=== PATIENT | female | born 1980 | race African-American/Black ===

== ENCOUNTER → 2016-06-07 | Outpatient (CLI) | payer OTHER ==
--- NOTE | ~2016-06-07 | CR63 ---
[facility] A Service of [facility] & [facility] / [facility] RADIOLOGY TEXT RESULTS PATIENT: CARTER CROFT LOCATION: [facility] : [birth year] UNIT #: [id number] AGE: [address]: Lara Velazquez MD SEX: F ORDER DR: [id number] [facility] [address] [place], [place] [address] [id number] O MR#: [id number] Acc #: [id number] NAME: CARTER CROFT : 1980 SEX: F STUDY DATE/TIME: 06/07/2016 11:53 UNIT: [facility] ROOM: STUDY DESCRIPTION: CR Chest 2 View Attending Physician: Lara Velazquez M.D. Ordering Physician: Lara Velazquez M.D. Primary Care Physician: Lara Velazquez M.D. MEDICAL IMAGING REPORT This report is preliminary unless electronic signature is present EXAM Two view chest 06/07/2016. HISTORY A 36-year-old woman, unproductive cough times 6 months. COMPARISON STUDIES 07/25/2007 FINDINGS Two-view chest demonstrates normal cardiac size and configuration. Hilar structures and mediastinal contours are preserved. Bilateral lungs are clear and fully expanded. Costophrenic angles are preserved. IMPRESSION Negative chest. Dictated by... Brigido Nova M.D. THIS IS AN ELECTRONICALLY VERIFIED REPORT Brigido Nova M.D. at 06/08/2016 8:12 AM ANTIONETTE/salazar TD: 06/07/2016 15:32 JOB #: [id number] MEDICAL IMAGING REPORT Page 1 of 1 COPY
== END | disposition home or self-care (01) ==
LOC: CRAD 11:27
DX: R05 Cough (principal)
CPT/HCPCS: 71020

== ENCOUNTER → 2016-09-20 | Outpatient (CLI) | payer OTHER ==
--- NOTE | ~2016-09-20 | US98 ---
[facility] A Service of [facility] & [facility] RADIOLOGY TEXT RESULTS PATIENT: CARTER CROFT LOCATION: [facility] : 82 UNIT #: [id number] AGE: [address]: Lara Velazquez MD SEX: F ORDER DR: [id number] [facility] [address] [place], [place] [address] [id number] O MR#: [id number] Acc #: [id number] NAME: CARTER CROFT : 1980 SEX: F STUDY DATE/TIME: 09/20/2016 9:48 UNIT: [facility] ROOM: STUDY DESCRIPTION: US Pelvic Non-OB Complete Attending Physician: Lara Velazquez M.D. Referring Physician: Lara Velazquez M.D. Ordering Physician: Lara Velazquez M.D. Primary Care Physician: Lara Velazquez M.D. MEDICAL IMAGING REPORT This report is preliminary unless electronic signature is present EXAM Transabdominal and transvaginal pelvic ultrasound 09/20/2016 HISTORY Enlarged uterus on physical examination 09/15/2016. Uterine fibroids. TECHNIQUE Transabdominal and transvaginal pelvic ultrasound was performed. Endovaginal ultrasound was performed for attempted better visualization of the adnexal structures. FINDINGS The bladder is normal in appearance. Uterus measures 13.9 cm craniocaudal x 10.3 cm AP x 8.4 cm transverse. The uterus is diffusely heterogeneous in echotexture characteristic of leiomyomatous infiltration. A discrete 8.8 cm x 8.7 cm fibroid is seen within the uterine body. The endometrial stripe was poorly visualized. The right ovary measured 2.8 cm x 4.3 cm x 2.1 cm, while the left ovary measured 1.1 cm x 2.4 cm x 1.6 cm. There is no adnexal mass and there is no free fluid in the pelvis. IMPRESSION 1. Diffusely enlarged leiomyomatous uterus. 2. The ovaries are normal bilaterally. No adnexal mass was seen and there is no free fluid in the pelvis. Dictated by... Regulo R. Pierce, M.D. THIS IS AN ELECTRONICALLY VERIFIED REPORT Regulo Pelayo M.D. at 09/21/2016 2:10 PM KRT/pcl [facility] A Service of [facility] RADIOLOGY TEXT RESULTS PATIENT: CARTER CROFT LOCATION: [facility] : 82 UNIT #: [id number] AGE: [address]: Lara Velazquez MD SEX: F ORDER DR: TD: 09/20/2016 18:38 JOB #: [id number] MEDICAL IMAGING REPORT Page 1 of 1 COPY
== END | disposition home or self-care (01) ==
LOC: CWCC 09:17
DX: D25.9 Leiomyoma of uterus, unspecified (principal)
CPT/HCPCS: 76830; 76856